=== PATIENT | male | born 1985 | race Hispanic/Latino ===

== ENCOUNTER 2016-12-01 15:59 | Emergency (ER) | payer OTHER ==
[2016-12-01] MEDS ORDERED: ONDANSETRON 4 MG ORAL DISINTEGRATING TAB (S0181) As Ordered ONE (16:50)
--- NOTE | 2016-12-01 17:20 | EDDOCDS ---
Nurse's Notes [facility] Name: Brandon Guevara Age: 31 yrs Sex: Male : 1985 Arrival Date: 12/01/2016 Time: 15:59 Bed TR8 Private MD: Other - Complete Info On Cds Diagnosis: Nausea with vomiting, unspecified;Diarrhea, unspecified Presentation: 12/01 16:07 Presenting complaint: Patient states: onset of n/v/d today. also c/o abdominal pain. ead Adult Sepsis Screening: The patient does not have new or worsening altered mentation. Patient's respiratory rate is less than 22. Systolic blood pressure is greater than 100. Patient has a qSOFA score of 0- Negative Sepsis Screen. Suicide/Homicide risk assessment- the patient denies having any suicidal and/or homicidal ideations and does not present with any other emotional, behavioral or mental health complaints. 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 Transition of care: patient was not received from another setting of care. 16:07 Acuity: CHAPITO Level 3 ead 16:07 Method Of Arrival: Walkin/Carried/Asstd ead Triage Assessment: 16:08 General: Appears in no apparent distress, comfortable, Behavior is appropriate for age, ead cooperative. Pain: Location: abdomen Pain currently is 7 out of 10 on a pain scale. GI: Reports diarrhea, lower abdominal pain, nausea, vomiting. Derm: Skin is pink, warm & dry. 16:09 Pt Declines HIV testing. ead Historical: - Allergies: no known allergies; - Home Meds: 1. none - PMHx: none; - PSHx: none; - Social history: Smoking status: Patient states former smoker of tobacco. No barriers to communication noted, The patient speaks fluent Portuguese, Speaks appropriately for age. - Family history: Not pertinent. - : The pt / caregiver states he / she is not on anticoagulants. Home medication list is obtained from the patient. - Exposure Risk Screening:: None identified. Screenin:15 Screening information is obtained from the patient. Fall risk: No risks identified. rs3 Assistance ADL's: requires no assistance with activities of daily living. Abuse/DV Screen: The patient / caregiver reports he/she is: not in a situation that causes fear, pain or injury. Nutritional screening: No deficits noted. Advance Directives: Currently, there is no health care proxy. home support is adequate. Assessment: 17:16 General: Appears in no apparent distress, Behavior is appropriate for age, cooperative. rs3 Respiratory: Airway is patent Respiratory effort is even, unlabored, Respiratory pattern is regular, symmetrical, Breath sounds are clear bilaterally. GI: Abdomen is non- distended Bowel sounds present X 4 quads. Abd is soft and non tender X 4 quads. Vital Signs: 16:02 BP 111 / 58; Pulse 101; Resp 18 S; Temp 99.3(O); Pulse Ox 100% on R/A; Weight 70.31 kg gr2 (R); Height 64 in. (162.56 cm) (R); Pain 4/10; 16:02 Body Mass Index 26.61 (70.31 kg, 162.56 cm) gr2 Vitals: 16:02 Log In Time: December 01, 2016 at 16:02. gr2 ED Course: 16:01 Patient visited by Abby Eaton. gr2 16:01 Other - Complete Info On Cds is Private Physician. gr2 16:01 Patient moved to Waiting gr2 16:03 Patient visited by Abby Eaton. gr2 16:04 Patient moved to Pre RCE gr2 16:08 Triage Initiated ead 16:14 Patient moved to Triage 2 jc4 16:42 Dax Menon FNP is [facility]. ke 16:43 Patient visited by Dax Menon FNP. ke 16:43 Patient visited by Dax Menon FNP. ke 17:01 Jatinder [facility] is Referral Physician. ke 17:12 Patient moved to TR8 rs3 17:18 The patient / caregiver is instructed regarding the plan of care and ED course. rs3 17:18 No IV's were initiated during this patient's visit. No procedures done that require rs3 assistance. Administered Medications: 16:52 Drug: Ondansetron ODT 4 mg [ondansetron 4 mg disintegrating tablet (1 tabs)] Route: PO; rs3 Order Results: There are currently no results for this order. Outcome: 17:02 Discharge ordered by Provider. ke 17:17 Discharge Assessment: patient administered narcotics - no. The following High Risk rs3 Discharge criteria are identified: None. Discharged to home with family. Condition: stable. Discharge instructions given to patient, Instructed on discharge instructions, follow up and referral plans. medication usage, Demonstrated understanding of instructions, medications, Pt was receptive of discharge instructions/ teaching. Prescriptions given X 1. No special radiology studies were completed. Property :Personal belongings accompany Pt. 17:18 Patient left the ED. rs3 Signatures: Dax Menon, STATISTICS TUTOR STATISTICS TUTOR Catherine HaywardRN RN rs3 Maricruz Warner RN RN 4 Abby Eaton 2 Umu Christian,RN RN aided MTDD
--- NOTE | 2016-12-01 17:20 | EDDOCDS ---
Physician Documentation [facility] Name: Brandon Guevara Age: 31 yrs Sex: Male : 1985 Arrival Date: 12/01/2016 Time: 15:59 Bed TR8 Private MD: Other - Complete Info On Cds Disposition: 12/01/16 17:02 Discharged to Home/Self Care. Impression: Nausea with vomiting, unspecified, Diarrhea, unspecified. - Condition is Stable. - Discharge Instructions: Diarrhea, Nausea and Vomiting. - Prescriptions for ZOFRAN ODT 4 mg - dissolve 1 tablet by ORAL route 4 times per day As needed do not chew, do not swallow whole; 10 tablet. - Medication Reconciliation, Local Pharmacy Hours form. - Follow up: HAYDEN Tobias; When: 4 - 5 days; Reason: Recheck today's complaints, Continuance of care. - Problem is an ongoing problem. - Symptoms are unchanged. Historical: - Allergies: no known allergies; - Home Meds: 1. none - PMHx: none; - PSHx: none; - Social history: Smoking status: Patient states former smoker of tobacco. No barriers to communication noted, The patient speaks fluent Taiwanese, Speaks appropriately for age. - Family history: Not pertinent. - : The pt / caregiver states he / she is not on anticoagulants. Home medication list is obtained from the patient. - Exposure Risk Screening:: None identified. Vital Signs: 12/01 16:02 BP 111 / 58; Pulse 101; Resp 18 S; Temp 99.3(O); Pulse Ox 100% on R/A; Weight 70.31 kg gr2 / 155.01 lbs (R); Height 64 in. (162.56 cm) (R); Pain 4/10; 16:02 Body Mass Index 26.61 (70.31 kg, 162.56 cm) gr2 MDM: 16:43 Ondansetron ODT Oral Disintegrating Tablet 4 mg PO once ordered. shalini 17:16 Financial registration complete. mpb Administered Medications: 16:52 Drug: Ondansetron ODT 4 mg [ondansetron 4 mg disintegrating tablet (1 tabs)] Route: PO; rs3 Signatures: Dax Menon, EFRAIN MORRISP Catherine Hayward RN RN rs3 Umu ChristianRN RN ead Ashok Grayson, Reg Reg mpb MTDD
--- NOTE | 2016-12-03 18:19 | EDDOCDS ---
Nurse's Notes [facility] Name: Brandon Guevara Age: 31 yrs Sex: Male : 1985 Arrival Date: 12/01/2016 Time: 15:59 Bed TR8 Private MD: Other - Complete Info On Cds Diagnosis: Nausea with vomiting, unspecified;Diarrhea, unspecified Presentation: 12/01 16:07 Presenting complaint: Patient states: onset of n/v/d today. also c/o abdominal pain. ead Adult Sepsis Screening: The patient does not have new or worsening altered mentation. Patient's respiratory rate is less than 22. Systolic blood pressure is greater than 100. Patient has a qSOFA score of 0- Negative Sepsis Screen. Suicide/Homicide risk assessment- the patient denies having any suicidal and/or homicidal ideations and does not present with any other emotional, behavioral or mental health complaints. Status: The patient is an active duty service parts coordinator. Transition of care: patient was not received from another setting of care. 16:07 Acuity: CHAPITO Level 3 ead 16:07 Method Of Arrival: Walkin/Carried/Asstd ead Triage Assessment: 16:08 General: Appears in no apparent distress, comfortable, Behavior is appropriate for age, ead cooperative. Pain: Location: abdomen Pain currently is 7 out of 10 on a pain scale. GI: Reports diarrhea, lower abdominal pain, nausea, vomiting. Derm: Skin is pink, warm & dry. 16:09 Pt Declines HIV testing. ead Historical: - Allergies: no known allergies; - Home Meds: 1. none - PMHx: none; - PSHx: none; - Social history: Smoking status: Patient states former smoker of tobacco. No barriers to communication noted, The patient speaks fluent Somali, Speaks appropriately for age. - Family history: Not pertinent. - : The pt / caregiver states he / she is not on anticoagulants. Home medication list is obtained from the patient. - Exposure Risk Screening:: None identified. Screenin:15 Screening information is obtained from the patient. Fall risk: No risks identified. rs3 Assistance ADL's: requires no assistance with activities of daily living. Abuse/DV Screen: The patient / caregiver reports he/she is: not in a situation that causes fear, pain or injury. Nutritional screening: No deficits noted. Advance Directives: Currently, there is no health care proxy. home support is adequate. Assessment: 17:16 General: Appears in no apparent distress, Behavior is appropriate for age, cooperative. rs3 Respiratory: Airway is patent Respiratory effort is even, unlabored, Respiratory pattern is regular, symmetrical, Breath sounds are clear bilaterally. GI: Abdomen is non- distended Bowel sounds present X 4 quads. Abd is soft and non tender X 4 quads. Vital Signs: 16:02 BP 111 / 58; Pulse 101; Resp 18 S; Temp 99.3(O); Pulse Ox 100% on R/A; Weight 70.31 kg gr2 (R); Height 64 in. (162.56 cm) (R); Pain 4/10; 16:02 Body Mass Index 26.61 (70.31 kg, 162.56 cm) gr2 Vitals: 16:02 Log In Time: December 01, 2016 at 16:02. gr2 ED Course: 16:01 Patient visited by Abby Eaton. gr2 16:01 Other - Complete Info On Cds is Private Physician. gr2 16:01 Patient moved to Waiting gr2 16:03 Patient visited by Abby Eaton. gr2 16:04 Patient moved to Pre RCE gr2 16:08 Triage Initiated ead 16:14 Patient moved to Triage 2 jc4 16:42 [facility]. ke 16:43 Patient visited by Dxa Menon FNP. ke 16:43 Patient visited by Dax Menon FNP. ke 17:01 Jatinder [facility] is Referral Physician. ke 17:12 Patient moved to TR8 rs3 17:18 The patient / caregiver is instructed regarding the plan of care and ED course. rs3 17:18 No IV's were initiated during this patient's visit. No procedures done that require rs3 assistance. 17:35 [facility] Payment Agreement was scanned into [employer] and attached to record. zo 17:38 Patient name changed from Brandon\S\\S\Rizvi-Toña\S\ to Brandon\S\ \S\Rizvi-Toña. EDMS 12/02 01:57 T-Sheet-- Draft Copy was scanned into [employer] and attached to record. hs2 Administered Medications: 12/01 16:52 Drug: Ondansetron ODT 4 mg [ondansetron 4 mg disintegrating tablet (1 tabs)] Route: PO; rs3 Order Results: There are currently no results for this order. Outcome: 17:02 Discharge ordered by Provider. ke 17:17 Discharge Assessment: patient administered narcotics - no. The following High Risk rs3 Discharge criteria are identified: None. Discharged to home with family. Condition: stable. Discharge instructions given to patient, Instructed on discharge instructions, follow up and referral plans. medication usage, Demonstrated understanding of instructions, medications, Pt was receptive of discharge instructions/ teaching. Prescriptions given X 1. No special radiology studies were completed. Property :Personal belongings accompany Pt. 17:18 Patient left the ED. rs3 Signatures: Dispatcher [employer] EDMS Dax Menon, Pal Atwood RosemaryRN RN rs3 Maricruz Warner RN RN jc4 Abby Eaton2 Umu ChristianRN RN Yuly Cooper, Reg Reg hs2 Chart Complete RISSA
--- NOTE | 2016-12-03 18:19 | EDDOCDS ---
Physician Documentation [facility] Name: Brandon Guevara Age: 31 yrs Sex: Male : 1985 Arrival Date: 12/01/2016 Time: 15:59 Bed TR8 Private MD: Other - Complete Info On Cds Disposition: 12/01/16 17:02 Discharged to Home/Self Care. Impression: Nausea with vomiting, unspecified, Diarrhea, unspecified. - Condition is Stable. - Discharge Instructions: Diarrhea, Nausea and Vomiting. - Prescriptions for ZOFRAN ODT 4 mg - dissolve 1 tablet by ORAL route 4 times per day As needed do not chew, do not swallow whole; 10 tablet. - Medication Reconciliation, Local Pharmacy Hours form. - Follow up: HAYDEN Tobias; When: 4 - 5 days; Reason: Recheck today's complaints, Continuance of care. - Problem is an ongoing problem. - Symptoms are unchanged. Historical: - Allergies: no known allergies; - Home Meds: 1. none - PMHx: none; - PSHx: none; - Social history: Smoking status: Patient states former smoker of tobacco. No barriers to communication noted, The patient speaks fluent Malian, Speaks appropriately for age. - Family history: Not pertinent. - : The pt / caregiver states he / she is not on anticoagulants. Home medication list is obtained from the patient. - Exposure Risk Screening:: None identified. Vital Signs: 12/01 16:02 BP 111 / 58; Pulse 101; Resp 18 S; Temp 99.3(O); Pulse Ox 100% on R/A; Weight 70.31 kg gr2 / 155.01 lbs (R); Height 64 in. (162.56 cm) (R); Pain 4/10; 16:02 Body Mass Index 26.61 (70.31 kg, 162.56 cm) gr2 MDM: 16:43 Ondansetron ODT Oral Disintegrating Tablet 4 mg PO once ordered. ke 17:16 Financial registration complete. mpb 17:35 [facility] Payment Agreement was scanned into [employer] and attached to record. zo 12/02 01:57 T-Sheet-- Draft Copy was scanned into [employer] and attached to record. hs2 Administered Medications: 12/01 16:52 Drug: Ondansetron ODT 4 mg [ondansetron 4 mg disintegrating tablet (1 tabs)] Route: PO; rs3 Signatures: Dax Menon, EFRAIN ONLINE MARKETING SPECIALISTPal Friedman Rosemary, RN RN rs3 Umu Christian RN RN ead Ashok Grayson, Reg Reg mpb Yuly Everett, Reg Reg hs2 The chart was reviewed and I authenticate all verbal orders and agree with the evaluation and treatment provided.Attachments: 17:35 [facility] Payment Agreement zo 12/02 01:57 T-Sheet-- Draft Copy hs2 Chart Complete MTDD
--- NOTE | 2016-12-03 18:20 | EDDOCDS ---
Physician Documentation [facility] Name: Brandon Guevara Age: 31 yrs Sex: Male : 1985 Arrival Date: 12/01/2016 Time: 15:59 Bed TR8 Private MD: Other - Complete Info On Cds Disposition: 12/01/16 17:02 Discharged to Home/Self Care. Impression: Nausea with vomiting, unspecified, Diarrhea, unspecified. - Condition is Stable. - Discharge Instructions: Diarrhea, Nausea and Vomiting. - Prescriptions for ZOFRAN ODT 4 mg - dissolve 1 tablet by ORAL route 4 times per day As needed do not chew, do not swallow whole; 10 tablet. - Medication Reconciliation, Local Pharmacy Hours form. - Follow up: HAYDEN Tobias; When: 4 - 5 days; Reason: Recheck today's complaints, Continuance of care. - Problem is an ongoing problem. - Symptoms are unchanged. Historical: - Allergies: no known allergies; - Home Meds: 1. none - PMHx: none; - PSHx: none; - Social history: Smoking status: Patient states former smoker of tobacco. No barriers to communication noted, The patient speaks fluent Dutch, Speaks appropriately for age. - Family history: Not pertinent. - : The pt / caregiver states he / she is not on anticoagulants. Home medication list is obtained from the patient. - Exposure Risk Screening:: None identified. Vital Signs: 12/01 16:02 BP 111 / 58; Pulse 101; Resp 18 S; Temp 99.3(O); Pulse Ox 100% on R/A; Weight 70.31 kg gr2 / 155.01 lbs (R); Height 64 in. (162.56 cm) (R); Pain 4/10; 16:02 Body Mass Index 26.61 (70.31 kg, 162.56 cm) gr2 MDM: 16:43 Ondansetron ODT Oral Disintegrating Tablet 4 mg PO once ordered. ke 17:16 Financial registration complete. mpb 17:35 [facility] Payment Agreement was scanned into [employer] and attached to record. zo 12/02 01:57 T-Sheet-- Draft Copy was scanned into [employer] and attached to record. hs2 Administered Medications: 12/01 16:52 Drug: Ondansetron ODT 4 mg [ondansetron 4 mg disintegrating tablet (1 tabs)] Route: PO; rs3 Signatures: Dax Menon, EFRAIN RESEARCH HYDROLOGISTPal Friedman Rosemary, RN RN rs3 Umu Christian RN RN ead Ashok Grayson, Reg Reg mpb Yuly Everett, Reg Reg hs2 The chart was reviewed and I authenticate all verbal orders and agree with the evaluation and treatment provided.Attachments: 17:35 [facility] Payment Agreement zo 12/02 01:57 T-Sheet-- Draft Copy hs2 Chart Complete MTDD
== END 2016-12-01 17:18 | disposition home or self-care (01) ==
LOC: M ED 15:59
DX: R11.2 Nausea with vomiting, unspecified (principal); R19.7 Diarrhea, unspecified; Z87.891 Personal history of nicotine dependence